=== PATIENT | female | born 1980 | race Two or more races ===

== ENCOUNTER → 2024-10-01 | Outpatient (CLI) | payer BC, SELFPAY ==
--- NOTE | 2024-10-01 12:30 | XR_ITS ---
Examination: Breast ultrasound, unilateral, left complete Date and time of exam: October 01, 2024 at 1300 hours INDICATIONS: Mammogram March 31, 2024 nodules left breast circumscribed, 4 mm, 4 mm, 7 mm, 3:00 nodule 5 x 7 mm on left breast sonogram March 31, 2024 Technique: Real-time easley scale ultrasonographic imaging performed left breast including all 4 quadrants as well as nipple retroareolar and axillary region. Findings: 1:00 oval mass circumscribed 8 x 10 mm 1:00 oval mass circumscribed 6 x 6 mm 3:00 oval mass circumscribed 6 x 6 mm 7:00 cyst 8 x 9 mm IMPRESSION: BI-RADS Category 3: Probably benign findings One additional 6 month left breast sonogram follow-up is needed to document stability of multiple solid nodules described above
== END | disposition home or self-care (01) ==
PROVIDERS: PCP Family Medicine; Referring Provider Family Medicine; Visit Provider Family Medicine
DX: N63.25 Unspecified lump in the left breast, overlapping quadrants (principal); N63.21 Unspecified lump in the left breast, upper outer quadrant
CPT/HCPCS: 76641

== ENCOUNTER → 2024-10-04 | Outpatient (CLI) | payer BC, SELFPAY ==
--- NOTE | 2024-10-04 08:15 | XR_ITS ---
Examination: Diagnostic digital mammography, unilateral, left Computer aided detection 3-D breast Tomosynthesis, unilateral Date and time of exam: October 04, 2024 0825 hours INDICATIONS: Mammogram March 31, 2024 3 circumscribed nodules CC view Technique: Nonmagnified MLO, CC views of the left breast have been obtained, reconstructed from 3-D Tomosynthesis images. R2 computer aided detection program utilized for evaluation of suspicious masses and/or abnormal calcifications. 3-D Tomosynthesis images obtained. Findings: The breast is heterogeneously dense, which may obscure small masses Circumscribed nodule 1:00 position left breast, 10 mm Please see the left breast sonogram report October 01, 2024 indicating 3 circumscribed nodules 1:00 3:00 position left breast Impression: BI-RADS category 3: Probably benign findings Recommend 6 month bilateral mammography follow-up Recommend 6 month left breast sonography follow-up
== END | disposition home or self-care (01) ==
LOC: CDIM 08:17
PROVIDERS: PCP Family Medicine; Referring Provider Family Medicine; Visit Provider Family Medicine
DX: R92.332 Mammographic heterogeneous density, left breast (principal)
CPT/HCPCS: 77061; 77065; G0279

== ENCOUNTER → 2025-07-25 | Outpatient (CLI) | payer BC, SELFPAY ==
--- NOTE | 2025-07-25 12:32 | XR_ITS ---
EXAMINATION: Lumbar spine 4 views TECHNIQUE: AP, lateral standing flexion lateral standing extension,: Lateral lower lumbar spine Date and time: July 25, 2025, 1248 hours INDICATIONS: Worsening back pain 20 years FINDINGS: Lumbar dextroscoliosis is 20 degrees Advanced degenerative disc disease lower 3 lumbar levels No significant range of motion between flexion and extension No lumbar fracture IMPRESSION: Lumbar dextroscoliosis 20 degrees Advanced degenerative disc disease lower 3 lumbar levels with spinal stenosis
== END | disposition home or self-care (01) ==
LOC: CDIM 12:16
PROVIDERS: PCP Nurse Practitioner Family; Referring Provider Chiropractor; Visit Provider Chiropractor
DX: M41.86 Other forms of scoliosis, lumbar region (principal); M51.360 Other intervertebral disc degeneration, lumbar region with discogenic back pain only; M48.061 Spinal stenosis, lumbar region without neurogenic claudication
CPT/HCPCS: 72100